=== PATIENT | female | born 1960 | race Caucasian/White ===

== ENCOUNTER 2018-11-02 06:12 | Day surgery (SDC) | payer OTHER ==
[~2018-11-02] VITALS: Ht 168.9 cm; Wt 62.7 kg
[~2018-11-02 06:12] MED LIST: ACETAMINOPHEN 325 MG TABLET PO PRN
[2018-11-02] MEDS ORDERED: MIDAZOLAM HCL 2 MG/2 ML VIAL IVP ONE (06:13)
[2018-11-02] MEDS ORDERED: FentaNYL CITRATE-PF 100 MCG/2 ML VIAL IVP ONE (06:13)
[2018-11-02] MEDS ORDERED: ONDANSETRON HCL 4 MG/2 ML VIAL IVP ONE (06:13)
[2018-11-02] MEDS ORDERED: RINGERS SOLUTION,LACTATED 500 ML IV ONE ×2 (06:30→06:58)
[2018-11-02] MEDS ORDERED: MOXIFLOXACIN HCL 0.5% 3 ML OPHTHALMIC SOLUTION ONE (06:59)
[2018-11-02] MEDS ORDERED: PHENYLEPHRINE HCL 2.5% 2 ML OPHTHALMIC SOLUTION ONE (07:00)
[2018-11-02] MEDS ORDERED: TROPICAMIDE 1% 2 ML OPHTHALMIC SOLUTION ONE (07:00)
[2018-11-02] MEDS ORDERED: CYCLOPENTOLATE HCL 2% 2 ML OPHTHALMIC SOLUTION ONE (07:00)
[2018-11-02] MEDS ORDERED: KETOROLAC TROMETHAMINE 0.5% 5 ML OPHTHALMIC SOLUTION ONE (07:00)
[2018-11-02] MEDS: TROPICAMIDE 1% 2 ML OPHTHALMIC SOLUTION OD SCH ×3 (07:22→07:36)
[2018-11-02] MEDS: KETOROLAC TROMETHAMINE 0.5% 5 ML OPHTHALMIC SOLUTION OD SCH ×3 (07:23→07:36)
[2018-11-02] MEDS: MOXIFLOXACIN HCL 0.5% 3 ML OPHTHALMIC SOLUTION OD SCH ×3 (07:23→07:36)
[2018-11-02] MEDS: CYCLOPENTOLATE HCL 2% 2 ML OPHTHALMIC SOLUTION OD SCH ×3 (07:23→07:36)
[2018-11-02] MEDS: PHENYLEPHRINE HCL 2.5% 2 ML OPHTHALMIC SOLUTION OD SCH ×3 (07:23→07:36)
[2018-11-02] MEDS ORDERED: AMLO-511 PO (08:02)
[2018-11-02] MEDS ORDERED: ANAS1TAB50 PO (08:02)
[2018-11-02] MEDS ORDERED: CALC-789 PO (08:02)
[2018-11-02] MEDS ORDERED: BENA10TA12 PO (08:02)
[2018-11-02] MEDS ORDERED: ATOR20TA86 PO (08:02)
[2018-11-02] MEDS ORDERED: OMEG-135 PO (08:02)
[2018-11-02] MEDS ORDERED: CYAN50008 PO (08:02)
== END 2018-11-02 09:35 | disposition home or self-care (01) ==
LOC: SURGERY 06:12
PROVIDERS: ATTEND Ophthalmology
DX: H26.8 Other specified cataract (principal)
CPT/HCPCS: 66984; 93005; C1780; J2250; J2405; J3010; J7120

== ENCOUNTER 2018-11-30 06:29 | Day surgery (SDC) | payer OTHER ==
[~2018-11-30] VITALS: Ht 167.6 cm; Wt 65.0 kg
[~2018-11-30 06:29] MED LIST changes: -ACETAMINOPHEN 325 MG TABLET PO PRN; +ALPRAZolam 0.5 MG TABLET PO ONE; +AMLO-511 PO; +ANAS1TAB50 PO; +ATOR20TA86 PO; +BENA10TA12 PO; +CALC-789 PO; +CYAN50008 PO; +CYCLOPENTOLATE HCL 1% 2 ML OPHTHALMIC SOLUTION ONE; +DICLOFENAC SODIUM 0.1% 2.5 ML OPHTHALMIC SOLUTION OS SCH; +KETOROLAC TROMETHAMINE 0.5% 5 ML OPHTHALMIC SOLUTION ONE; +MOXIFLOXACIN HCL 0.5% 3 ML OPHTHALMIC SOLUTION ONE; +OMEG-135 PO; +PHENYLEPHRINE HCL 2.5% 2 ML OPHTHALMIC SOLUTION ONE; +RINGERS SOLUTION,LACTATED 500 ML IV ONE; +TETRACAINE HCL/PF 0.5% 4 ML OPHTHALMIC SOLUTION ONE; +TETRACAINE HCL/PF 0.5% 4 ML OPHTHALMIC SOLUTION OS ONE; +TROPICAMIDE 1% 2 ML OPHTHALMIC SOLUTION ONE
[2018-11-30] MEDS ORDERED: MIDAZOLAM HCL 2 MG/2 ML VIAL IVP ONE (06:30)
[2018-11-30] MEDS ORDERED: FentaNYL CITRATE-PF 100 MCG/2 ML VIAL IVP ONE (06:30)
[2018-11-30] MEDS: MOXIFLOXACIN HCL 0.5% 3 ML OPHTHALMIC SOLUTION OS SCH ×3 (06:59→07:11)
[2018-11-30] MEDS: PHENYLEPHRINE HCL 2.5% 2 ML OPHTHALMIC SOLUTION OS SCH ×3 (06:59→07:10)
[2018-11-30] MEDS: KETOROLAC TROMETHAMINE 0.5% 5 ML OPHTHALMIC SOLUTION OS SCH ×3 (06:59→07:10)
[2018-11-30] MEDS: CYCLOPENTOLATE HCL 1% 2 ML OPHTHALMIC SOLUTION OS SCH ×3 (06:59→07:11)
[2018-11-30] MEDS: TROPICAMIDE 1% 2 ML OPHTHALMIC SOLUTION OS SCH ×3 (06:59→07:10)
[2018-11-30] MEDS ORDERED: RINGERS SOLUTION,LACTATED 500 ML IV ONE (07:00)
== END 2018-11-30 08:55 | disposition home or self-care (01) ==
LOC: SURGERY 06:29
PROVIDERS: ATTEND Ophthalmology
DX: H25.12 Age-related nuclear cataract, left eye (principal); E78.00 Pure hypercholesterolemia, unspecified; I10 Essential (primary) hypertension; Z98.890 Other specified postprocedural states; Z72.89 Other problems related to lifestyle; Z98.41 Cataract extraction status, right eye; Z79.899 Other long term (current) drug therapy
CPT/HCPCS: 66984; C1780; J2250; J3010; J7120